=== PATIENT | male | born 1960 | race Caucasian/White ===

== ENCOUNTER 2024-10-02 14:39 | Inpatient (IN) | payer BC ==
[~2024-10-02] VITALS: Ht 180.3 cm; Wt 109.0 kg
[2024-10-02] MEDS ORDERED: IRBE75TA11 PO (14:51)
[2024-10-02] MEDS ORDERED: LEVO50TA5 PO (14:51)
[2024-10-02] MEDS ORDERED: METO200T15 PO (14:51)
[2024-10-02] MEDS: ONDANSETRON 4MG 2ML VIAL IV ONE (15:06)
[2024-10-02] MEDS: MORPHINE 4 MG/ML 1 ML VIAL IV PRN ×2 (15:07→18:25)
[2024-10-02 18:33] LABS: PLATELET COUNT, AUTOMATED 162 10^3/uL (150-450)
[2024-10-02 19:06] LABS: CALCIUM LEVEL 8.6 MG/DL (8.3-10.6); CARBON DIOXIDE LEVEL 26 MMOL/L (20-31); CHLORIDE LEVEL 107 MMOL/L (98-107); CREATININE FOR GFR 0.86 MG/DL (0.70-1.30); GLOMERULAR FILTRATION RATE > 90.0 (>49); POTASSIUM SERUM 3.7 MMOL/L (3.5-5.1); SODIUM LEVEL 143 MMOL/L (136-145)
[2024-10-02] MEDS ORDERED: MOM 30 ML SUSPENSION UDC PO PRN (19:10)
[2024-10-02] MEDS ORDERED: MAALOX 30 ML SUSP *UDC PO PRN (19:10)
[2024-10-02] MEDS ORDERED: ACETAMINOPHEN 325 MG TAB PO PRN (19:10)
[2024-10-02] MEDS ORDERED: METO50TA7 PO (19:36)
[2024-10-02] MEDS ORDERED: LEVO150T7 PO (19:36)
[2024-10-02] MEDS ORDERED: AMLO1TAB24 PO (19:36)
[2024-10-02] MEDS ORDERED: IRBE300T12 PO (19:36)
[2024-10-02] MEDS ORDERED: HOME MED LIST COMPLETE! XX SCH (19:40)
[2024-10-02] MEDS: KETOROLAC 30 MG/ML 1 ML VIAL IV PRN (21:31)
[2024-10-02 22:15] VITALS: BP 150/75; TEMP 97.9; O2SAT 95
[2024-10-03] VITALS (11 sets, daily range): BP systolic 126–163; BP diastolic 74–90; TEMP 97.2–97.7; O2SAT 89–96
[2024-10-03] MEDS: MORPHINE 4 MG/ML 1 ML VIAL IV PRN (00:13)
[2024-10-03] MEDS: HEPARIN SOD 5000 UNITS/ML 1 ML VIAL/SYRINGE SC SCH (05:11)
[2024-10-03] MEDS: LEVOTHYROXINE 150 MCG TABLET (0.15 MG) PO SCH (05:12)
[2024-10-03] MEDS ORDERED: LEVOTHYROXINE 88 MCG TABLET (0.088 MG) PO SCH (06:00)
[2024-10-03 06:55] LABS: BASO # 0.1 10^3/uL (0.0-0.2); BASO % 0.5 % (0.0-1.0); EOS # 0.2 10^3/uL (0.0-0.5); EOS % 2.0 % (0.0-3.0); LYMPH # 1.1 10^3/uL (1.5-5.0); LYMPH % 11.8 % (24.0-44.0); MONO # 0.7 10^3/uL (0.0-0.8); MONO % 7.7 % (2.0-8.0); NEUTROPHILS # 7.4 10^3/uL (1.5-8.5); NEUTROPHILS % 77.5 % (36.0-66.0); PLATELET COUNT, AUTOMATED 151 10^3/uL (150-450)
[2024-10-03 07:05] LABS: ESTIMATED AVERAGE GLUCOSE 117.0 MG/DL (60-110)
[2024-10-03 07:14] LABS: CALCIUM LEVEL 7.8 MG/DL (8.3-10.6); CARBON DIOXIDE LEVEL 28.0 MMOL/L (20-31); CHLORIDE LEVEL 104.0 MMOL/L (98-107); CREATININE FOR GFR 0.95 MG/DL (0.70-1.30); GLOMERULAR FILTRATION RATE 88.3 (>49); MAGNESIUM LEVEL 2.1 MG/DL (1.8-2.4); POTASSIUM SERUM 3.4 MMOL/L (3.5-5.1); SODIUM LEVEL 142.0 MMOL/L (136-145)
[2024-10-03] MEDS ORDERED: NALOXONE INJ 0.4MG/1ML VIAL IV PRN (08:15)
[2024-10-03] MEDS: ACETAMINOPHEN *IV* 1,000 MG in IV 1 EA IV ONE (08:46)
[2024-10-03] MEDS: KCL 40MEQ in NS 1000ML 1,000 ML IV SCH (08:56)
[2024-10-03] MEDS: amLODIPine 5 MG TAB PO SCH (08:59)
[2024-10-03] MEDS: METOPROLOL TART 50 MG TAB PO SCH (09:00)
[2024-10-03] MEDS ORDERED: IRBESARTAN 150 MG TAB PO SCH (09:00)
[2024-10-03] MEDS ORDERED: METOPROLOL SUCC. 100 MG *XL* TAB PO SCH ×2 (09:00)
[2024-10-03] MEDS: KETOROLAC 30 MG/ML 1 ML VIAL IV SCH (09:16)
[2024-10-03] MEDS: IRBESARTAN 150 MG TAB PO SCH (10:09)
[2024-10-03] MEDS: HYDROMORPHONE HCL 0.5 MG/0.5 ML SYRINGE IV ONE ×2 (11:22→13:10)
[2024-10-03] MEDS: NITROGLYCERIN 2% OINT 1 GM *U/D* PKT TOP ONE (13:10)
[2024-10-03] MEDS ORDERED: dexmedeTOMIDine (4 MCG/ML) 200 MCG/50 ML BTL As Ordered ONE (15:41)
[2024-10-03] MEDS ORDERED: MIDAZOLAM INJ 2 MG/2 ML VIAL As Ordered ONE (15:41)
[2024-10-03] MEDS ORDERED: KETOROLAC 30 MG/ML 1 ML VIAL As Ordered ONE (15:41)
[2024-10-03] MEDS ORDERED: ACETAMINOPHEN 1000MG/100ML IV BAG As Ordered ONE (15:41)
[2024-10-03] MEDS ORDERED: LIDOCAINE 2% 100 MG/5 ML SDV (FOR ANES.) As Ordered ONE (15:41)
[2024-10-03] MEDS ORDERED: ONDANSETRON 4MG 2ML VIAL As Ordered ONE (15:41)
[2024-10-03] MEDS ORDERED: dexAMETHasone 4 MG/ML 1 ML VIAL As Ordered ONE (15:41)
[2024-10-03] MEDS ORDERED: LABETALOL 100 MG/20 ML VIAL As Ordered ONE (16:04)
[2024-10-03] MEDS ORDERED: ALBUTEROL 6.7 GM INHALER **FOR ANES. CART/OMNICELL ONLY As Ordered ONE (16:08)
[2024-10-03] MEDS ORDERED: DESFLURANE 240 ML INHALANT As Ordered ONE (16:12)
[2024-10-03] MEDS ORDERED: HYDROMORPHONE HCL 0.5 MG/0.5 ML SYRINGE IV PRN (16:50)
[2024-10-03] MEDS ORDERED: MORPHINE 2 MG/ML 1 ML VIAL IV PRN (16:50)
[2024-10-03] MEDS: ceFAZolin SODIUM 2 GM in DEXTROSE 5% (D5W) ADV/MINI-BAG 50 ML IV SCH (23:21)
[2024-10-04] VITALS (10 sets, daily range): BP systolic 130–159; BP diastolic 75–84; TEMP 97.5–97.9; O2SAT 93–96
[2024-10-04] MEDS ORDERED: MOM 30 ML SUSPENSION UDC PO PRN (07:30)
[2024-10-04] MEDS ORDERED: NALOXONE INJ 0.4MG/1ML VIAL IV PRN (07:30)
[2024-10-04] MEDS ORDERED: PERCOCET 5MG/325MG TAB PO PRN (07:30)
[2024-10-04] MEDS ORDERED: SENNOSIDES/DOCUSATE SODIUM 8.6 MG/50MG TAB PO PRN (07:30)
[2024-10-04] MEDS: amLODIPine 10 MG TAB PO ONE (08:28)
[2024-10-04] MEDS: PERCOCET 5MG/325MG TAB PO ONE (08:28)
[2024-10-04 10:30] LABS: PLATELET COUNT, AUTOMATED 178 10^3/uL (150-450)
[2024-10-04 10:51] LABS: CALCIUM LEVEL 8.1 MG/DL (8.3-10.6); CARBON DIOXIDE LEVEL 27 MMOL/L (20-31); CHLORIDE LEVEL 102 MMOL/L (98-107); CREATININE FOR GFR 0.89 MG/DL (0.70-1.30); GLOMERULAR FILTRATION RATE > 90.0 (>49); MAGNESIUM LEVEL 2.2 MG/DL (1.8-2.4); POTASSIUM SERUM 3.8 MMOL/L (3.5-5.1); SODIUM LEVEL 139 MMOL/L (136-145)
[2024-10-04] MEDS ORDERED: AMLO1TAB25 PO (10:56)
[2024-10-04] MEDS ORDERED: PERC10TA26 PO (11:00)
[2024-10-04] MEDS: FUROSEMIDE 40 MG/4 ML VIAL IV ONE (11:46)
[2024-10-04] MEDS: MORPHINE 4 MG/ML 1 ML VIAL IV ONE (15:23)
[2024-10-04] MEDS: PERCOCET 5MG/325MG TAB PO PRN (23:48)
[2024-10-05 03:41] VITALS: BP 131/73; TEMP 97.5; O2SAT 95
[2024-10-05] MEDS: amLODIPine 10 MG TAB PO SCH (08:32)
[2024-10-05] MEDS: PERCOCET 5MG/325MG TAB PO ONE (08:32)
[2024-10-05] MEDS: KETOROLAC 30 MG/ML 1 ML VIAL IV ONE (08:34)
[2024-10-05] MEDS ORDERED: METH-1164 PO (09:25)
[2024-10-05 12:00] VITALS: BP 132/73; TEMP 97.3; O2SAT 92
== END 2024-10-05 13:45 | disposition home or self-care (01) | DRG 315 ==
LOC: M ED 14:39 → EDBD 14:39 → M ED INP 19:06 → M MS5PR 22:13
PROVIDERS: ADMIT Student in an Organized Health Care Education/Training Program; ATTEND Student in an Organized Health Care Education/Training Program
PROC: 0PSG04Z Reposition Left Humeral Shaft with Internal Fixation Device, Open Approach (ICD-10-PCS; principal; 2024-10-03 15:00)
DX: S42.325A Nondisplaced transverse fracture of shaft of humerus, left arm, initial encounter for closed fracture (principal); I10 Essential (primary) hypertension; E03.9 Hypothyroidism, unspecified; W12.XXXA Fall on and from scaffolding, initial encounter; Y92.009 Unspecified place in unspecified non-institutional (private) residence as the place of occurrence of the external cause; S32.402A Unspecified fracture of left acetabulum, initial encounter for closed fracture; S32.592A Other specified fracture of left pubis, initial encounter for closed fracture; Z79.890 Hormone replacement therapy; Z79.899 Other long term (current) drug therapy

== ENCOUNTER → 2024-10-17 | Outpatient (CLI) | payer BC ==
[~2024-10-17] MED LIST: AMLO1TAB24 PO; AMLO1TAB25 PO; IRBE300T12 PO; IRBE75TA11 PO; LEVO150T7 PO; LEVO50TA5 PO; METH-1164 PO; METO200T15 PO; METO50TA7 PO; PERC10TA26 PO
== END ==
LOC: M SOG 06:47
PROVIDERS: ATTEND Physician Assistant
DX: M79.622 Pain in left upper arm (principal); M16.0 Bilateral primary osteoarthritis of hip; R10.2 Pelvic and perineal pain

== ENCOUNTER → 2024-11-21 | Outpatient (CLI) | payer BC, MEDICARE | LOC: M SOG 07:18 | PROVIDERS: ATTEND Physician Assistant | DX: R10.2 Pelvic and perineal pain (principal); M79.622 Pain in left upper arm; Z98.890 Other specified postprocedural states ==

== ENCOUNTER → 2025-03-13 | Outpatient (CLI) | payer MEDICARE | LOC: M SOG 07:45 | PROVIDERS: ATTEND Physician Assistant | DX: S32.502D Unspecified fracture of left pubis, subsequent encounter for fracture with routine healing (principal); S42.322D Displaced transverse fracture of shaft of humerus, left arm, subsequent encounter for fracture with routine healing ==